=== PATIENT | female | born 1990 | race Caucasian/White ===

== ENCOUNTER 2016-12-16 03:15 | Inpatient (IN) | payer MEDICAID ==
[~2016-12-16] VITALS: Ht 99.1 cm; Wt 55.7 kg
[2016-12-16] VITALS (370 sets, daily range): BP systolic 146–179; BP diastolic 102–144; PULSE 75–86; TEMP 97.6–97.9; O2SAT 89–100
[~2016-12-16 03:15] MED LIST: MACROBID 1100 MG/CAP PO; MAGNESIUM100 MG PO; NO HOME MEDICATIONS; PRENATAL PLUS1 TA2 PO
[2016-12-16] MEDS ORDERED: COREG 6.256.25 MG/TA PO (05:03)
[2016-12-16] MEDS ORDERED: LASIX 40MG TABL40 MG PO (05:03)
[2016-12-16] MEDS ORDERED: TYLENOL 500MG500 MG PO (05:04)
[2016-12-16 05:44] LABS: BASO % 0.6 % (0.0-2.0); EOS # 0.2 (0.0-0.7); EOS % 2.4 % (0-4.0); GRAN # 4.4 (1.4-6.5); GRAN % 65.6 % (42.2-75.2); LYMPH # 1.6 (1.2-3.4); LYMPH % 23.8 % (20.0-51.0); MEAN CELL VOLUME 90 fl (80.0-100.0); MEAN CORPUSCULAR HGB CONC 34 g/dl (33.0-37.0); MEAN PLATELET VOLUME 11.7 fl (7.4-10.4); MONO # 0.5 (0.1-0.6); MONO % 7.3 % (1.7-9.3); PLATELET COUNT 169 K/mm3 (130-400); RED BLOOD COUNT 2.92 M/mm3 (4.10-5.30); REDCELL DISTRIBUTION WIDTH-CV 13.5 % (11.5-14.5); WHITE BLOOD COUNT 6.7 K/mm3 (4.8-10.8)
[2016-12-16 05:47] LABS: HEMATOCRIT 26.2 % (37.0-47.0); HEMOGLOBIN 8.9 g/dl (12.5-16.0); MEAN CORPUSCULAR HEMOGLOBIN 30 pg (27.0-31.0)
[2016-12-16 05:54] LABS: ADJUSTED CALCIUM 9.4 mg/dL (8.4-10.2); ALBUMIN 2.7 gm/dL (3.5-5.0); BILIRUBIN,TOTAL 0.3 mg/dL (0.0-1.0); CALCIUM 8.4 mg/dL (8.4-10.2); CREATININE, serum 3.62 mg/dL (0.52-1.25); POTASSIUM 3.7 mmol/L (3.4-5.0); TOTAL PROTEIN 5.6 gm/dL (6.4-8.2)
[2016-12-16 06:09] LABS: TROPONIN-I 0.041 ng/mL (0.000-0.034)
[2016-12-16 08:33] LABS: PH 6 (5-8); SQUAMOUS EPITHELIAL 0-2 /hpf; URINE APPEARANCE Clear; URINE BACTERIA Rare /hpf; URINE BILIRUBIN Negative (NEGATIVE); URINE BLOOD 2+ (NEGATIVE); URINE COLOR Straw; URINE GLUCOSE Negative (NEGATIVE); URINE KETONE Negative (NEGATIVE); URINE UROBILINOGEN Negative (NEGATIVE)
== END 2016-12-16 11:30 | disposition short-term general hospital (02) | DRG 314 ==
LOC: IMCU 03:15 → ICU 04:20
PROVIDERS: Family Medicine
DX: I30.9 Acute pericarditis, unspecified (principal); I50.23 Acute on chronic systolic (congestive) heart failure; N17.9 Acute kidney failure, unspecified; I42.0 Dilated cardiomyopathy; I11.0 Hypertensive heart disease with heart failure; F15.10 Other stimulant abuse, uncomplicated; D64.9 Anemia, unspecified; F17.210 Nicotine dependence, cigarettes, uncomplicated
CPT/HCPCS: A4315; J1940; J2270

== ENCOUNTER 2017-08-03 09:27 | Outpatient (CLI) | payer SELFPAY ==
[2017-08-03] VITALS (9 sets, daily range): BP systolic 117–141; BP diastolic 75–94; PULSE 68–78; TEMP 97.6–98
[~2017-08-03 09:27] MED LIST changes: +BACTRIM DS 8001 TAB PO; +COREG 25MG25 MG/TAB PO; +COREG 6.256.25 MG/TA PO; +LASIX 40MG TABL40 MG PO; +TYLENOL 500MG500 MG PO
== END 2017-08-03 16:18 | disposition home or self-care (01) ==
LOC: COL.LAB 09:27 → MEDICAL 09:27 → COL.LAB 16:18
DX: D64.9 Anemia, unspecified (principal)
CPT/HCPCS: OP; P9016

== ENCOUNTER 2017-08-19 03:25 | Emergency (ER) | payer SELFPAY ==
[~2017-08-19] VITALS: Ht 162.6 cm; Wt 51.8 kg
[2017-08-19 03:29] VITALS: BP 149/109; PULSE 90; TEMP 98.6
== END 2017-08-19 05:08 | disposition home or self-care (01) ==
LOC: COL.ER 03:25
DX: S93.692A Other sprain of left foot, initial encounter (principal); N18.6 End stage renal disease; Z99.2 Dependence on renal dialysis; W18.39XA Other fall on same level, initial encounter

== ENCOUNTER 2017-08-25 12:00 | Outpatient (RCR) | payer MEDICAID ==
[2017-08-23 12:57] VITALS: BP 151/112; PULSE 96
[2017-08-23 13:55] LABS: HEMOGLOBIN 8.2 g/dl (12.5-16.0)
[2017-08-23 14:11] VITALS: BP 162/118; PULSE 96; TEMP 98.7
[2017-08-23 14:26] VITALS: BP 167/120; PULSE 96; TEMP 97.2
[2017-08-23 15:00] VITALS: BP 166/119; PULSE 101; TEMP 98.1
[2017-08-23 16:00] VITALS: BP 142/98; PULSE 89; TEMP 97.3
[2017-08-23 16:21] VITALS: BP 144/96; PULSE 94; TEMP 98.7
[~2017-08-25] VITALS: Ht 162.6 cm; Wt 48.1 kg
[~2017-08-25 12:00] MED LIST changes: +APRESOLINE 25MG25 MG PO; +NORVASC 10MG10 MG PO; +RENVELA800 MG PO
[2017-08-25 14:21] VITALS: BP 159/113; PULSE 90; TEMP 98.1
[2017-08-25 14:35] VITALS: BP 192/118; PULSE 93; TEMP 98.1
[2017-08-25 15:10] VITALS: BP 204/111; PULSE 89; TEMP 98.3
[2017-08-25 16:30] VITALS: BP 201/107; PULSE 88; TEMP 98.2
[2017-08-25 17:05] VITALS: BP 187/97; PULSE 86; TEMP 98
[2017-08-27] MEDS ORDERED: EXCEDRIN1 TAB PO (14:16)
[2017-08-27] MEDS ORDERED: NORCO 325 MG-51 TAB PO (17:38)
[2017-10-29] MEDS ORDERED: FOLIC ACID 11 MG/TA1 PO (21:58)
[2017-10-29] MEDS ORDERED: APRESOLINE50 MG PO (21:59)
[2017-10-29] MEDS ORDERED: VITAMIN C500 MG PO (21:59)
[2017-10-31] MEDS ORDERED: PRINIVIL40 MG PO (11:00)
== END 2017-08-27 16:19 | disposition home or self-care (01) ==
LOC: EUO 12:00
PROVIDERS: Internal Medicine Nephrology
DX: D50.0 Iron deficiency anemia secondary to blood loss (chronic) (principal)
CPT/HCPCS: J7050; P9016

== ENCOUNTER 2017-08-27 13:41 | Day surgery (SDC) | payer SELFPAY ==
[~2017-08-27] VITALS: Ht 162.6 cm; Wt 49.1 kg
[2017-08-27] MEDS ORDERED: EXCEDRIN1 TAB PO (14:16)
[2017-08-27 15:02] VITALS: BP 146/105; PULSE 90; TEMP 97.7
[2017-08-27 17:13] VITALS: BP 131/81; PULSE 67; TEMP 98
[2017-08-27 17:30] VITALS: BP 127/85; PULSE 73
[2017-08-27] MEDS ORDERED: NORCO 325 MG-51 TAB PO (17:38)
[2017-08-27 17:45] VITALS: BP 134/88; PULSE 74
[2017-08-27 18:00] VITALS: BP 127/83; PULSE 70
== END 2017-08-27 18:20 | disposition home or self-care (01) ==
LOC: SDCO 13:41
DX: I13.2 Hypertensive heart and chronic kidney disease with heart failure and with stage 5 chronic kidney disease, or end stage renal disease (principal); I50.9 Heart failure, unspecified; N18.6 End stage renal disease; Z99.2 Dependence on renal dialysis; I08.3 Combined rheumatic disorders of mitral, aortic and tricuspid valves; Z79.899 Other long term (current) drug therapy; F17.210 Nicotine dependence, cigarettes, uncomplicated; F15.90 Other stimulant use, unspecified, uncomplicated; D64.9 Anemia, unspecified
CPT/HCPCS: J0690; J1644; J2250; J2704; J3010; J7030

== ENCOUNTER 2019-01-11 13:14 | Inpatient (IN) | payer MEDICAID ==
[~2019-01-11] VITALS: Ht 162.6 cm; Wt 53.2 kg
[~2019-01-11 13:14] MED LIST changes: +APRESOLINE50 MG PO; +EXCEDRIN1 TAB PO; +FOLIC ACID 11 MG/TA1 PO; +NORCO 325 MG-51 TAB PO; +PRINIVIL40 MG PO; +VITAMIN C500 MG PO
[2019-01-11 14:50] LABS: BASO # 0.1 (0.0-0.2); BASO % 0.7 % (0.0-2.0); EOS # 0.1 (0.0-0.7); GRAN # 5.5 (1.4-6.5); GRAN % 77.1 % (42.2-75.2); HEMOGLOBIN 11.6 g/dl (12.5-16.0); LYMPH # 0.9 (1.2-3.4); LYMPH % 13.1 % (20.0-51.0); MEAN CELL VOLUME 96 fl (80.0-100.0); MEAN CORPUSCULAR HEMOGLOBIN 30 pg (27.0-31.0); MEAN CORPUSCULAR HGB CONC 32 g/dl (33.0-37.0); MEAN PLATELET VOLUME 12.3 fl (7.4-10.4); MONO # 0.5 (0.1-0.6); MONO % 6.8 % (1.7-9.3); PLATELET COUNT 140 K/mm3 (130-400); RED BLOOD COUNT 3.85 M/mm3 (4.10-5.30); REDCELL DISTRIBUTION WIDTH-CV 16.5 % (11.5-14.5)
[2019-01-11 14:56] LABS: HEMATOCRIT 36.8 % (37.0-47.0)
[2019-01-11 15:06] LABS: ALANINE AMINOTRANSFERASE 13 U/L (9-52); ALKALINE PHOSPHATASE 78 U/L (50-136); ANION GAP 17 mmol/L (7-16); AST,SGOT 18 U/L (15-37); BLOOD UREA NITROGEN 99 mg/dL (7-17); CALCIUM 9.2 mg/dL (8.4-10.2); CARBON DIOXIDE 17 mmol/L (22-30); CHLORIDE 102 mmol/L (98-107); CREATININE, serum 9.38 (0.52-1.25); GLUCOSE 90 mg/dL (74-106); SODIUM 136 mmol/L (137-145); TOTAL PROTEIN 7.4 gm/dL (6.4-8.2)
[2019-01-11 15:07] LABS: C-REACTIVE PROTEIN < 0.5 mg/dL (0.0-0.9); POTASSIUM 7.4 mmol/L (3.4-5.0)
[2019-01-11 15:36] LABS: TROPONIN-I 0.033 ng/mL (0.000-0.035)
[2019-01-11 19:40] VITALS: BP 133/91; PULSE 75; TEMP 97.6
[2019-01-11 22:44] VITALS: BP 128/88; PULSE 84; TEMP 97.6
[2019-01-12 03:16] VITALS: BP 138/97; PULSE 80; TEMP 98.2
[2019-01-12 04:27] LABS: BASO # 0.1 (0.0-0.2); EOS # 0.2 (0.0-0.7); EOS % 3.2 % (0-4.0); GRAN # 4.5 (1.4-6.5); LYMPH % 16.4 % (20.0-51.0); MEAN CELL VOLUME 94 fl (80.0-100.0); MEAN CORPUSCULAR HEMOGLOBIN 31 pg (27.0-31.0); MEAN CORPUSCULAR HGB CONC 32 g/dl (33.0-37.0); MEAN PLATELET VOLUME 12.6 fl (7.4-10.4); MONO # 0.5 (0.1-0.6); MONO % 8.1 % (1.7-9.3); PLATELET COUNT 133 K/mm3 (130-400); RED BLOOD COUNT 3.61 M/mm3 (4.10-5.30); REDCELL DISTRIBUTION WIDTH-CV 16.2 % (11.5-14.5)
[2019-01-12 04:37] LABS: CALCIUM 8.3 mg/dL (8.4-10.2); MAGNESIUM 2.1 mg/dL (1.6-2.3); POTASSIUM 5.2 mmol/L (3.4-5.0)
[2019-01-12 04:40] LABS: CREATININE, serum 6.93 (0.52-1.25)
--- NOTE | 2019-01-12 05:04 | NUR ---
PT HAD SOME COUPLE OF RHYTHM CHANGES PER TELE, COULD NOT REALLY DIFFERENTIATE FROM AFIB RVR OR ST WITH PACS. EKG DONE AND SHOWED SR. PT'S VS WNL. HECTOR RAMÍREZ NOTIFIED AND ADVISED TO CALL DIRECTOR SEARCH. DR. RUANO NOTIFIED AND ORDERED STAT LABS AND WANTS TO BE CALLED AGAIN IF POTASSIUM IS 6 OR GREATER. POTASSIUM CAME BACK AT 5.2. WILL CONTINUE TO MONITOR AT THIS TIME.
--- NOTE | 2019-01-12 07:00 | NUR ---
Report received from YULIET Jin. Pt in bed resting, wanting to order breakfast. Will assist and continue to monitor.
--- NOTE | 2019-01-12 08:28 | NUR ---
Pt in bed resting, assessment charted. Pt has pain in RFA AV fistula at 710, not looking forward to dialysis today, recommended going to dialysis and talking to Dr. Edward there about pain options. INT to LFA. Denies other needs, dialysis will begin shortly. Will continue to monitor.
[2019-01-12 08:33] VITALS: BP 139/99; PULSE 80; TEMP 97.5
[2019-01-12 13:32] VITALS: BP 143/93; PULSE 79; TEMP 97.9
--- NOTE | 2019-01-12 15:38 | NUR ---
Discharge teaching completed at this time. INT dc'd, tip intact. Pt received discharge packet, answered all questions. Pt leaving with all belongings, escorted out by myself, boyfriend to drive home, criteria met.
== END 2019-01-12 15:42 | disposition home or self-care (01) | DRG 640 ==
LOC: COL.ER 13:14 → MEDICAL 16:46 → COL.ER 16:46 → MEDICAL 16:46
PROVIDERS: Emergency Medicine; Family Medicine; Internal Medicine; ADMIT Internal Medicine
PROC: 5A1D70Z Performance of Urinary Filtration, Intermittent, Less than 6 Hours Per Day (ICD-10-PCS; principal; 2019-01-11)
DX: E87.5 Hyperkalemia (principal); N18.6 End stage renal disease; I13.2 Hypertensive heart and chronic kidney disease with heart failure and with stage 5 chronic kidney disease, or end stage renal disease; E87.70 Fluid overload, unspecified; I50.9 Heart failure, unspecified; D63.1 Anemia in chronic kidney disease; F17.210 Nicotine dependence, cigarettes, uncomplicated; I16.0 Hypertensive urgency; E83.39 Other disorders of phosphorus metabolism; I48.91 Unspecified atrial fibrillation; Z91.14 Patient's other noncompliance with medication regimen; Z99.2 Dependence on renal dialysis; Z91.15 Patient's noncompliance with renal dialysis
CPT/HCPCS: 99222-AI; 99239; J1644; J1815; J7030